=== PATIENT | female | born 1950 | race Caucasian/White ===

== ENCOUNTER 2022-02-06 09:05 | Emergency (ER) | payer OTHER, MEDICAID ==
[~2022-02-06] VITALS: Ht 167.6 cm; Wt 156.5 kg
[2022-02-06 09:05] VITALS: BP_SYST 99
[2022-02-06] MEDS ORDERED: NS 1000 ML IV.SOLN IV ONE (09:15)
[2022-02-06] MEDS ORDERED: PIPERACILLIN/TAZO 3.375 GM in D5W 50 ML IV ONE (09:30)
[2022-02-06] MEDS ORDERED: VANCOMYCIN HCL 1,000 MG in D5W 250 ML IV ONE (09:30)
[2022-02-06] MEDS ORDERED: FER300L GT (09:42)
[2022-02-06] MEDS ORDERED: ZINC100T2 GT (09:42)
[2022-02-06] MEDS ORDERED: ACET325T53 PO (09:42)
[2022-02-06] MEDS ORDERED: IPRA3AMP9 INH (09:42)
[2022-02-06] MEDS ORDERED: WARF3TAB59 GT (09:42)
[2022-02-06] MEDS ORDERED: METO25TA6 GT (09:42)
[2022-02-06] MEDS ORDERED: ACET325T53 GT (09:42)
[2022-02-06] MEDS ORDERED: POTA-197 GT (09:42)
[2022-02-06] MEDS ORDERED: AMIO200T66 GT (09:42)
[2022-02-06] MEDS ORDERED: INSU100V42 (09:42)
[2022-02-06] MEDS ORDERED: CHLO473M5 PO (09:42)
[2022-02-06] MEDS ORDERED: SPIR50TA GT (09:42)
[2022-02-06] MEDS ORDERED: CYAN100010 GT (09:42)
[2022-02-06] MEDS ORDERED: MULT-1193 GT (09:42)
[2022-02-06] MEDS ORDERED: TRAM50TA2 GT (09:42)
[2022-02-06] MEDS ORDERED: ASCO500T20 GT (09:42)
[2022-02-06] MEDS ORDERED: ONDA-8 GT (09:42)
[2022-02-06] MEDS ORDERED: FURO-149 GT (09:42)
[2022-02-06] MEDS ORDERED: AMIN30LI2 GT (09:42)
[2022-02-06] MEDS ORDERED: ARGI1POW13 GT (09:42)
[2022-02-06] MEDS ORDERED: SENN8.6T19 GT (09:42)
[2022-02-06 09:44] LABS: BASOPHILS % (AUTO) 0.4 % (0.0-2.0); HEMATOCRIT 31.9 % (36-48); LYMPHOCYTES % (AUTO) 9.4 % (20.5-51.5); MEAN CORPUSCULAR VOLUME 87 fL (79.0-98.0); MONOCYTES # (AUTO) 0.8 K/uL (0.0-1.0); MONOCYTES % (AUTO) 7.5 % (1.7-9.3); NEUTROPHILS # (AUTO) 8.4 K/uL (1.8-7.7); NEUTROPHILS % (AUTO) 82.7 % (40.0-70.0); PLATELET COUNT (AUTO) 158 K/uL (130-430); RED BLOOD CELL COUNT(AUTO) 3.66 MIL/uL (4.2-6.2); RED CELL DISTRIBUTION WIDTH 20.3 % (9.0-15.0); WHITE BLOOD COUNT (AUTO) 10.1 K/uL (4.8-10.8)
[2022-02-06] MEDS ORDERED: PIPERACILLIN/TAZOBACTAM 3.375 GM/VIAL (ZOSYN) IV ONE ×2 (09:46→18:38)
[2022-02-06] MEDS ORDERED: VANCOMYCIN HCL 1000 MG/VIAL IV ONE (09:46)
[2022-02-06 10:05] LABS: ANION GAP 9 (5-15); CALCIUM 10.3 mg/dL (8.4-11.0); CHLORIDE 96 mmol/L (98-107); CREATININE 1.57 mg/dL (0.55-1.30); GLUCOSE 187 mg/dL (70-99); POTASSIUM 4.7 mmol/L (3.5-5.1); UREA NITROGEN, BLOOD 61 mg/dL (8-21)
[2022-02-06 10:13] LABS: ALBUMIN 1.9 g/dL (3.4-4.8); ASPARTATE AMINOTRANSFERASE 15 U/L (10-37); TOTAL BILIRUBIN 1.8 mg/dL (0.0-1.0)
[2022-02-06 10:15] LABS: INR 1.9 (0.8-1.2); PROTHROMBIN TIME 18.2 SECS (9.5-12.5)
[2022-02-06 10:28] LABS: ALANINE AMINOTRANSFERASE 5 U/L (12-78)
[2022-02-06 10:41] LABS: BILIRUBIN,URINE NEGATIVE (NEGATIVE); BLOOD, URINE 3+ (NEGATIVE); CLARITY/URINE TURBID (CLEAR); COLOR,URINE YELLOW (YELLOW); GLUCOSE,URINE NEGATIVE (NEGATIVE); KETONES,URINE TRACE (NEGATIVE); LEUKOCYTE ESTERASE ,URINE 3+ (NEGATIVE); NITRITE, URINE NEGATIVE (NEGATIVE); PROTEIN URINE 2+ (NEGATIVE); UROBILINOGEN,URINE 0.2 (0.2-1.0)
[2022-02-06] MEDS ORDERED: WATER FOR INJECTION STERILE IV ONE (11:00)
[2022-02-06] MEDS ORDERED: HUMAN PROTHROMBIN COMPLX IV ONE (11:00)
[2022-02-06] MEDS ORDERED: PHYTONADIONE 10 MG/ML AMP SUBCUT ONE (11:00)
[2022-02-06 11:04] LABS: BACTERIA,URINE MANY /HPF (None Seen); RBC,URINE 20-50 /HPF (0-3); WBC,URINE >100 /HPF (0-3)
[2022-02-06] MEDS ORDERED: NOREPINEPHRINE BITARTRATE 4 MG in NS 246 ML IV ONE (15:00)
[2022-02-06] MEDS ORDERED: NOREPINEPHRINE 4 MG/4 ML VIAL IV ONE (15:45)
[2022-02-06] MEDS ORDERED: NACL 0.9% 1,000 ML IV ONE (15:45)
[2022-02-06] MEDS ORDERED: ACETAMINOPHEN 325 MG SUPP.RECT RC ONE (16:22)
[2022-02-06] MEDS ORDERED: ACETAMINOPHEN 650 MG SUPP.RECT RC ONE (16:30)
[2022-02-06] MEDS ORDERED: PIPERACILLIN/TAZO 3.375 GM in NS 50 ML IV ONE (18:00)
[2022-02-06] MEDS ORDERED: ALBUTEROL SULFATE 0.083% 2.5 MG/3 ML VIAL.NEB INH ONE (19:25)
[2022-02-06] MEDS ORDERED: IPRATROPIUM BROM 0.5 MG/2.5 ML VIAL.NEB (ATROVENT) INH ONE (19:25)
[2022-02-06] MEDS ORDERED: IPRATROPIUM/ALBUTEROL SULFATE 3 ML AMPUL.NEB (DUONEB) INH ONE (19:30)
[2022-02-06 21:13] VITALS: BP_SYST 102
== END 2022-02-06 21:54 | disposition short-term general hospital (02) ==
LOC: SED 09:05
DX: I21.4 Non-ST elevation (NSTEMI) myocardial infarction (principal); R65.20 Severe sepsis without septic shock; I62.9 Nontraumatic intracranial hemorrhage, unspecified; E11.9 Type 2 diabetes mellitus without complications; I10 Essential (primary) hypertension; K21.9 Gastro-esophageal reflux disease without esophagitis; Z88.5 Allergy status to narcotic agent; Z88.6 Allergy status to analgesic agent; Z79.899 Other long term (current) drug therapy; Z20.822 Contact with and (suspected) exposure to COVID-19
CPT/HCPCS: 80053; 81000; 82962; 85025; 85610; 85730; 87070; 87040; 87086; 87205; 84484; 36415; 93005; 71045; 70450; 76376; 94640 ×2; 94002; 99291; 96361; 96365; 96367; 96368; 96372; 99292; 83605; 87804 ×2; 87426; J1956; J3430; J2543; J3370; J7613; J7030